=== PATIENT | female | born 2000 | race Caucasian/White ===

== ENCOUNTER 2021-12-12 14:39 | Outpatient (CLI) | payer BC, SELFPAY ==
--- NOTE | ~2021-12-12 | US_ITS ---
EXAMINATION: US OB <=14 wk fetus w TV DATE: 12/12/2021 15:30 INDICATION: Amenorrhea. Establish dating and viability of during first trimester TECHNIQUE: Real-time pelvic ultrasound utilizing both a transvaginal and transabdominal probe was pe rformed. The interpreting radiologist was not present for the study. COMPARISON: None. FINDINGS: The uterus measures 7.3 x 4.5 x 4.8 cm. There is an intrauterine gestational sac. A yolk sac but no pole is identified. The mean sac diameter measures 11 mm, which correlates with an estimated ge stational age of 5 weeks and 5 days. 5 mm anechoic cyst at the cervix. The right ovary measures 3.3 x 1.8 x 2.3 cm. The left ovary measures 3.5 x 2.3 x 2.0 cm. There are a few subcentimeter anechoic follicles in both ovaries. Vascular flow with arterial waveforms identifie d in both ovaries on color Doppler. There is no free fluid in the pelvis. IMPRESSION: 1. Intrauterine gestational sac with single yolk sac but no discernible pole likely due to whitney y stage of . 2. Gestational age by ultrasound based upon mean sac diameter of 5 weeks 5 day(s) +/- 4 day(s) with ultrasound estimated date of delivery (GABI) of 08/09/2022. Reviewed, dictated and finalized at location B. IMPRESSION: 1. Intrauterine gestational sac with single yolk sac but no discernible p ole likely due to early stage of . 2. Gestational age by ultrasound based upon mean sac diameter of 5 weeks 5 day (s) +/- 4 day(s) with ultrasound estimated date of delivery (GABI) of 08/09/2022.
== END 2021-12-12 14:40 | disposition home or self-care (01) ==
LOC: CHSIMG 14:41
PROVIDERS: PCP Nurse Practitioner Family; Visit Provider Student in an Organized Health Care Education/Training Program
DX: N91.2 Amenorrhea, unspecified (principal)
CPT/HCPCS: 76801; 76817

== ENCOUNTER 2021-12-22 07:39 | Outpatient (CLI) | payer BC, SELFPAY ==
--- NOTE | ~2021-12-22 | US_ITS ---
EXAMINATION: US OB <= 14 weeks fetus DATE: 12/22/2021 08:54 INDICATION: First trimester dating and viability assessment TECHNIQUE: Real-time pelvic transabdominal ultrasound was performed. COMPARISON: 12/12/2021 FINDINGS: The uterus measures 7.8 x 5.0 x 5.5 cm. There is an intrauterine gestational sac. The mean sac diameter is 1.4 cm, previously 1.1 cm. A yolk sac is identified. No definite pole is visua lized. The right ovary measures 3.6 x 2.5 x 2.8 cm. The left ovary measures 3.5 x 2.2 x 3.0 cm. There is nor mal vascular flow in the ovaries. There is no free fluid in the pelvis. IMPRESSION: 1. Intrauterine gestational sac without visible pole. Increase in mean sac diameter does not co rrespond with expected interval growth since prior ultrasound exam. Ultrasound findings are suspiciou s for, but not diagnostic of, failure. Recommend followup with serial beta-hCG and ultrasou nd. Reviewed, dictated and finalized at location A. IMPRESSION: 1. Intrauterine gestational sac without visible pole. Increase in mean sa c diameter does not correspond with expected interval growth since prior ultras ound exam. Ultrasound findings are suspicious for, but not diagnostic of, pregn roixe failure. Recommend followup with serial beta-hCG and ultrasound.
== END 2021-12-22 07:40 | disposition home or self-care (01) ==
LOC: CHSIMG 07:41
PROVIDERS: PCP Nurse Practitioner Family; Visit Provider Student in an Organized Health Care Education/Training Program
DX: Z34.90 Encounter for supervision of normal pregnancy, unspecified, unspecified trimester (principal)
CPT/HCPCS: 76801

== ENCOUNTER 2021-12-27 16:48 | Outpatient (CLI) | payer BC, SELFPAY | END 2021-12-27 16:49 | disposition home or self-care (01) | LOC: CHSLAB 16:50 | PROVIDERS: PCP Nurse Practitioner Family; Visit Provider Student in an Organized Health Care Education/Training Program | DX: O20.0 Threatened abortion (principal) | CPT/HCPCS: 36415; 84702 ==

== ENCOUNTER 2021-12-29 07:50 | Outpatient (CLI) | payer BC, SELFPAY ==
--- NOTE | ~2021-12-29 | US_ITS ---
EXAMINATION: US OB <= 14 weeks fetus DATE: 12/29/2021 09:00 INDICATION: First trimester with inconclusive viability and 5 days of vaginal bleedin g. TECHNIQUE: Real-time pelvic ultrasound utilizing both a transvaginal and transabdominal probe was pe rformed. The interpreting radiologist was not present for the study. COMPARISON: 12/22/2021 FINDINGS: The uterus measures 7.9 x 4.1 x 5.4 cm. Endometrial complex measures 9 mm in thickness. No intrauteri ne gestational sac or fluid identified in the current study which given the clear visualization of th e gestational sac on the prior study would be consistent with demise. Again seen is a 6 mm anec hoic nabothian cyst at the cervix. The right ovary measures 3.2 x 2.1 x 2.6 cm. The left ovary measur es 4.3 x 1.8 x 2.3 cm. Vascular flow identified in both ovaries on color Doppler. There is no free fl uid in the pelvis. IMPRESSION: 1. No evident intrauterine gestational sac which given the clear visualization of a second study perf ormed 2 weeks prior to be consistent with demise. Correlate with beta hCG level. Reviewed, dictated and finalized at location A. IMPRESSION: 1. No evident intrauterine gestational sac which given the clear visualization of a second study performed 2 weeks prior to be consistent with demise. C orrelate with beta hCG level.
== END 2021-12-29 07:51 | disposition home or self-care (01) ==
LOC: CHSIMG 07:51
PROVIDERS: PCP Nurse Practitioner Family; Visit Provider Student in an Organized Health Care Education/Training Program
DX: O36.80X0 Pregnancy with inconclusive fetal viability, not applicable or unspecified (principal); O20.0 Threatened abortion
CPT/HCPCS: 36415; 76801; 84702

== ENCOUNTER 2022-02-13 15:35 | Outpatient (CLI) | payer BC, SELFPAY ==
--- NOTE | ~2022-02-13 | XR_ITS ---
EXAM: [id number]_CR DATE: 02/13/2022 15:52 HISTORY: RT sided neck pain x 1 wk NKI . COMPARISON: None available. FINDINGS: Craniocervical association and atlantoaxial joint are normal. No prevertebral soft tissue swelling. Vertebral bodies are aligned. Mild reversal of the cervical lordosis which can occur with p ositioning or spasm. Vertebral body heights and disc spaces are maintained. Normal facets and posteri or elements. IMPRESSION: No acute fracture or traumatic malalignment in the cervical spine. Reviewed, dictated and finalized at location K.
== END 2022-02-13 15:36 | disposition home or self-care (01) ==
LOC: CHSIMG 15:37
PROVIDERS: PCP Nurse Practitioner Family; Visit Provider Nurse Practitioner Family
DX: M54.2 Cervicalgia (principal)
CPT/HCPCS: 72040

== ENCOUNTER → 2022-04-26 11:31 | Outpatient (CLI) | payer BC, SELFPAY ==
--- NOTE | ~2022-04-26 | US_ITS ---
EXAMINATION: US OB transvaginal DATE: 04/26/2022 11:54 INDICATION: First trimester dating TECHNIQUE: Real-time pelvic transabdominal and transvaginal ultrasound was performed. COMPARISON: None. FINDINGS: The uterus measures 6.8 x 4.4 x 5.8 cm. There is an intrauterine gestational sac. A yolk s ac is identified. heart motion is identified measuring 142 beats per minute (bpm) by M-mode Dop pler. The crown rump length measures 9 mm, which correlates with an estimated gestational age o f 6 weeks and 6 day(s) (+/-) 4 day(s). The left ovary is not visualized however no left adnexal abnormality is seen. The right ovary measure s 3.4 x 2.6 x 2.7 cm. There is normal vascular flow in the right ovary. There is no free fluid in the pelvis. IMPRESSION: 1. Live intrauterine with an estimated gestational age of 6 weeks and 6 day(s) (+/-) 4 day( s) and an estimated delivery date of 12/14/2022. Reviewed, dictated and finalized at location F. IMPRESSION: 1. Live intrauterine with an estimated gestational age of 6 weeks and 6 day(s) (+/-) 4 day(s) and an estimated delivery date of 12/14/2022.
== END ==
PROVIDERS: PCP Nurse Practitioner Family; Visit Provider Advanced Practice Midwife
DX: Z36.87 Encounter for antenatal screening for uncertain dates (principal); O26.851 Spotting complicating pregnancy, first trimester; Z3A.01 Less than 8 weeks gestation of pregnancy
CPT/HCPCS: 76817

== ENCOUNTER 2022-05-02 18:02 | Outpatient (CLI) | payer BC, SELFPAY ==
[2022-05-02 18:28] LABS: Basophils Absolute Auto 0.05 K/mm3 (0.00-0.10); Basophils Percent Auto 0.3 % (0.0-1.0); Eosinophils Absolute Auto 0.08 K/mm3 (0.02-0.50); Eosinophils Percent Auto 0.5 % (1.0-6.0); Hematocrit 39.4 % (35.0-49.0); Hemoglobin 13.5 g/dL (12.0-15.0); Immature Granulocyte Absolute 0.07 K/mm3 (0.00-0.00); Immature Granulocyte Percent A 0.5 % (0.0-0.0); Lymphocytes Percent Auto 26.3 % (18.0-42.0); Mean Corpuscular HGB Conc 34.3 g/dL (32.0-36.0); Mean Corpuscular Hemoglobin 28.2 pg (27.0-31.0); Mean Corpuscular Volume 82.4 fL (78.0-102.0); Mean Platelet Volume 9.6 fl (9.2-11.8); Monocytes Absolute Auto 0.71 K/mm3 (0.10-0.90); Monocytes Percent Auto 4.8 % (2.0-11.0); Neutrophils Percent Auto 67.6 % (50.0-70.0); Platelet Count Result 326 K/mm3 (150-420); Red Blood Count 4.78 M/mm3 (4.20-5.40); Red Cell Distribution Width 13.7 % (11.6-14.4); White Blood Count 14.9 K/mm3 (4.8-10.8)
[2022-05-02 19:04] LABS: Ferritin 71 ng/mL (8-252)
[2022-05-02 19:10] LABS: Hemoglobin A1C 5.3 % (<5.7)
[2022-05-02 19:49] LABS: HIV 1 P24 AG Negative (Negative); HIV 1/2 AB Negative (Negative)
[2022-05-06 11:40] LABS: Hepatitis B Surface Antigen Nonreactive (Nonreactive); Hepatitis C Signal to Cutoff 0.01 ratio (<1.00); Hepatitis C Virus Antibody Nonreactive (Nonreactive)
[2022-05-06 12:24] LABS: Rubella IgG Antibody <0.90 Index
[2022-05-06 13:36] LABS: RPR Screen Non-Reactive (Non-Reactive)
[2022-05-08 18:37] LABS: Vitamin D 25 Hydroxy 32 ng/mL (30-100)
== END 2022-05-02 18:03 | disposition home or self-care (01) ==
LOC: CHSLAB 18:04
PROVIDERS: PCP Nurse Practitioner Family; Visit Provider Advanced Practice Midwife
DX: Z36.9 Encounter for antenatal screening, unspecified (principal)
CPT/HCPCS: 36415; 82306; 82728; 83036; 85025; 86592; 86703; 86762; 86850; 86900; 86901

== ENCOUNTER 2022-07-01 10:24 | Outpatient (CLI) | payer BC, SELFPAY ==
[2022-07-06 12:02] LABS: Total Protein Urine Random < 6.0 mg/dL (0.0-11.9)
[2022-07-06 12:04] LABS: Total Protein Urine 24 Hr 123 mg/24hr (0-149); Total Volume 24 Hour Urine 2050 ml
== END 2022-07-01 10:25 | disposition home or self-care (01) ==
LOC: CHSLAB 10:27
PROVIDERS: Obstetrics & Gynecology Gynecology; PCP Nurse Practitioner Family; Visit Provider Advanced Practice Midwife
DX: D13.2 Benign neoplasm of duodenum (principal)
CPT/HCPCS: 81050; 84156

== ENCOUNTER 2022-07-28 10:55 | Outpatient (CLI) | payer BC, SELFPAY ==
--- NOTE | ~2022-07-28 | US_ITS ---
US OB /maternal detail DATE: 07/28/2022 11:55 INDICATION: anatomy screen TECHNIQUE: Real-time imaging and Doppler analysis COMPARISON: None FINDINGS: Live bingham intrauterine gestation, fetus in longitudinal lie, breech presentation. The placenta is anterior fundal, lower margin 10 cm above the internal os. Subjectively normal amount of amniotic fluid. Cerebral ventricles appear borderline size, measuring up to 9.3 and 10.9 mm. The findings suggest bor derline or mild ventriculomegaly. With enlargement of the lateral ventricles of 10 mm or greater, mark rt-term follow-up ultrasound imaging for ventricular assessment and possible progression of tanja tricular dilatation is recommended. In addition, amniocentesis with chromosomal analysis should be co nsidered, in addition to testing for cytomegalovirus and toxoplasmosis. (Review article in [place] J ournal Obstetrics and Gynecology, January 2000 813: In the setting of isolated ventriculomegaly of 10 t o 12 mm, the likelihood of survival with normal neural development is greater than 90%. ) Normal cisterna magna. Normal nuchal fold. Normal cerebellum. lips and nose appear normal . The spine appears intact Normal kidneys without hydronephrosis. The diaphragm is intact. Fluid is demonstrated in the stomach and urinary bladder. Four-chamber heart with Doppler heart rate of 155 beats per minute. Normal appearance of the le ft and right ventricular outflow tracts. Three-vessel umbilical cord with normal insertion at abdominal wall. Four extremities. Biparietal diameter 4.78 cm; 20 weeks 3 days Head circumference 18.03 cm; 20 weeks 3 days Abdominal circumference 14.94 cm; 20 weeks 1 day Femur length 3.48 cm; 21 weeks 0 days Composite age by Hadlock formula is 20 weeks 4 days +/- 1 week 3 days, with GABI of 12/11/2022 compared to 12/14/2022 by LMP. Estimated weight is 360.3 +/- 54 g. Estimated weight-GP: 68.1% Head circumference/abdominal circumference 1.21, within normal range of 1.07-1.25 Femur length/head circumference 19.29, within normal range of 16.29-20.09 IMPRESSION: Borderline cerebral ventricular size; short-term follow-up ultrasound imaging is recommen ded. Consider amniocentesis with chromosomal analysis and possible testing for cytomegalovirus and to xoplasmosis. Composite age by Hadlock formula is 20 weeks 4 days +/- 1 week 3 days with GABI of 12/11/2022 Reviewed, dictated and finalized at Location A. Reviewed, dictated and finalized at location B. INTERNSHIP IMPRESSION: Borderline cerebral ventricular size; short-term follow-up ultrasou nd imaging is recommended. Consider amniocentesis with chromosomal analysis and possible testing for cytomegalovirus and toxoplasmosis. Composite age by Hadlock formula is 20 weeks 4 days +/- 1 week 3 days with GABI of 12/11/2022
== END 2022-07-28 10:56 ==
PROVIDERS: PCP Advanced Practice Midwife; Visit Provider Advanced Practice Midwife
DX: Z36.9 Encounter for antenatal screening, unspecified (principal); Z3A.20 20 weeks gestation of pregnancy
CPT/HCPCS: 76805

== ENCOUNTER 2022-08-01 17:56 | Outpatient (CLI) | payer BC, SELFPAY ==
[2022-08-06 09:55] LABS: CMV IgG Antibody <0.60 U/mL (<0.60); CMV IgM Antibody <30.00 AU/mL (<30.00)
[2022-08-07 08:01] LABS: Toxoplasma IgG Antibody <7.20 IU/mL (<7.20)
[2022-08-07 08:50] LABS: Toxoplasma IgM Antibody <8.00 AU/mL (<8.00)
== END 2022-08-01 17:57 | disposition home or self-care (01) ==
LOC: CHSLAB 18:01
PROVIDERS: PCP Advanced Practice Midwife; Visit Provider Obstetrics & Gynecology Gynecology
DX: O28.3 Abnormal ultrasonic finding on antenatal screening of mother (principal); Z3A.00 Weeks of gestation of pregnancy not specified
CPT/HCPCS: 36415; 86644; 86645; 86777

== ENCOUNTER 2022-09-19 08:15 | Outpatient (CLI) | payer OTHER, SELFPAY ==
[2022-09-19 09:42] LABS: Hematocrit 36.2 % (35.0-49.0); Hemoglobin 12.1 g/dL (12.0-15.0)
[2022-09-19 10:11] LABS: Glucose 1 Hour PP 50gm Dose 133 mg/dL (70-130)
[2022-09-19 10:22] LABS: HIV 1 P24 AG Negative (Negative); HIV 1/2 AB Negative (Negative)
[2022-09-23 06:22] LABS: Vitamin D 25 Hydroxy 59 ng/mL (30-100)
== END 2022-09-19 08:16 | disposition home or self-care (01) ==
LOC: CHSLAB 08:19
PROVIDERS: PCP Nurse Practitioner Family; Visit Provider Advanced Practice Midwife
DX: Z36.9 Encounter for antenatal screening, unspecified (principal)
CPT/HCPCS: 36415; 82306; 82947; 85014; 85018; 86703

== ENCOUNTER 2022-09-25 08:40 | Outpatient (CLI) | payer OTHER, SELFPAY ==
[2022-09-25 09:31] LABS: Glucose Fasting Gestational 91 mg/dL (>/=95)
[2022-09-25 10:30] LABS: Glucose 1 Hour Gest 173 mg/dL (70-130)
[2022-09-25 11:14] LABS: Glucose 2 Hour Gest 157 mg/dL (<155)
[2022-09-25 12:18] LABS: Glucose 3 Hour Gest 96 mg/dL (>/=140)
== END 2022-09-25 08:41 | disposition home or self-care (01) ==
LOC: CHSLAB 08:43
PROVIDERS: PCP Nurse Practitioner Family; Visit Provider Obstetrics & Gynecology Gynecology
DX: O99.810 Abnormal glucose complicating pregnancy (principal); Z3A.00 Weeks of gestation of pregnancy not specified
CPT/HCPCS: 36415; 82951; 82952

== ENCOUNTER → 2022-10-27 08:08 | Outpatient (CLI) | payer OTHER, SELFPAY ==
--- NOTE | ~2022-10-27 | US_ITS ---
EXAMINATION: US OB follow up DATE: 10/27/2022 08:45 INDICATION: Estimated size greater than expected for estimated gestational age age TECHNIQUE: Real-time ultrasound of the pelvis was performed. The interpreting radiologist was not pre sent for the study. COMPARISON: None. FINDINGS: There is a single living fetus in vertex presentation. The placenta is anterior. heart rate is 141 beats per minute (bpm). The amniotic fluid index is 25.2 cm, which is slightly above the upper limits of normal (5th%-95%: 8.3-24.5 cm at 33 weeks estimated gestational age, 97th% is 27.4 cm). The amniotic fluid volume however appears subjectively normal and the remaining imaging. The following biometric data were obtained: BPD: 8.2 cm -> 32 weeks 6 days Head circumference: 30.2 cm -> 33 weeks 4 days Abdominal circumference: 29.2 cm -> 33 weeks 1 days Femur length: 6.0 cm -> 31 weeks 2 days These measurements are concordant. Head circumference to abdominal circumference ratio: 1.04 (normal range 0.96-1.12). Estimated weight: 2013 g (+/-) 302 g or 4 lbs. 7 oz. (+/-) 11 oz. IMPRESSION: 1. Single living fetus in vertex presentation with heart rate of 141 bpm. 2. Amniotic fluid index of 25.2 cm which is between 95th and 97th percentile for estimated gestationa l age of 33 weeks. 3. Estimated weight is 26th percentile by Hadlock criteria when 12/22/2022 is used as the estima sylvia date of delivery (GABI). Please correlate with clinical information or earlier ultrasounds for mos t accurate GABI. Reviewed, dictated and finalized at location A. IMPRESSION: 1. Single living fetus in vertex presentation with heart rate of 141 bpm. 2. Amniotic fluid index of 25.2 cm which is between 95th and 97th percentile fo r estimated gestational age of 33 weeks. 3. Estimated weight is 26th percentile by Hadlock criteria when 12/22/2022 is used as the estimated date of delivery (GABI). Please correlate with clinica l information or earlier ultrasounds for most accurate GABI.
== END ==
PROVIDERS: PCP Advanced Practice Midwife; Visit Provider Advanced Practice Midwife
DX: O36.63X0 Maternal care for excessive fetal growth, third trimester, not applicable or unspecified (principal); Z3A.33 33 weeks gestation of pregnancy
CPT/HCPCS: 76816

== ENCOUNTER 2022-11-12 17:57 | Outpatient (CLI) | payer OTHER, SELFPAY ==
[2022-11-12 18:14] LABS: Hematocrit 36.5 % (35.0-49.0); Hemoglobin 11.8 g/dL (12.0-15.0); Mean Corpuscular HGB Conc 32.3 g/dL (32.0-36.0); Mean Corpuscular Hemoglobin 25.8 pg (27.0-31.0); Mean Corpuscular Volume 79.7 fL (78.0-102.0); Mean Platelet Volume 10.3 fl (9.2-11.8); Platelet Count Result 221 K/mm3 (150-420); Red Blood Count 4.58 M/mm3 (4.20-5.40); Red Cell Distribution Width 14.4 % (11.6-14.4); White Blood Count 11.1 K/mm3 (4.8-10.8)
[2022-11-12 18:41] LABS: Alanine Aminotransferase 18 U/L (14-59); Albumin Level 2.8 g/dL (3.4-5.0); Alkaline Phosphatase 138 U/L (46-116); Anion Gap 11 mmol/L (8-16); Aspartate Amino Transferase 21 U/L (15-37); Bilirubin,Total 0.2 mg/dL (0.00-1.00); Blood Urea Nitrogen 11 mg/dL (7-18); Carbon Dioxide 23 mmol/L (21-32); Chloride 106 mmol/L (98-108); Estimated Glomerular Filt Rate > 60; Glucose 86 mg/dL (70-99); Osmolality Calculated 288 mOsm/kg (285-295); Potassium 3.6 mmol/L (3.5-5.1); Sodium 140 mmol/L (136-145); Total Protein 6.7 g/dL (6.4-8.2); Uric Acid 5.3 mg/dL (2.6-6.0)
== END 2022-11-12 17:58 | disposition home or self-care (01) ==
LOC: CHSLAB 18:00
PROVIDERS: PCP Nurse Practitioner Family; Visit Provider Advanced Practice Midwife
DX: O99.891 Other specified diseases and conditions complicating pregnancy (principal)
CPT/HCPCS: 36415; 80053; 84550; 85027

== ENCOUNTER 2022-11-14 07:06 | Outpatient (CLI) | payer OTHER, SELFPAY ==
[2022-11-14 07:30] LABS: Total Protein Urine Random < 6.0 mg/dL (0.0-11.9)
[2022-11-14 07:32] LABS: Total Protein Urine 24 Hr 156 mg/24hr (0-149); Total Volume 24 Hour Urine 2600 ml
== END 2022-11-14 07:07 | disposition home or self-care (01) ==
LOC: CHSLAB 07:08
PROVIDERS: PCP Nurse Practitioner Family; Visit Provider Advanced Practice Midwife
DX: O99.891 Other specified diseases and conditions complicating pregnancy (principal)
CPT/HCPCS: 81050; 84156

== ENCOUNTER → 2022-11-22 08:11 | Outpatient (CLI) | payer OTHER, SELFPAY ==
--- NOTE | ~2022-11-22 | US_ITS ---
EXAMINATION: US OB follow up DATE: 11/22/2022 08:40 INDICATION: Size greater than dates. TECHNIQUE: Real-time transabdominal obstetric ultrasound. FINDINGS: Comparison to multiple prior studies sequentially, with oldest reviewed study dated 2021. There is a single living fetus in vertex presentation. The placenta is anterior without placenta pre via. cardiac activity and movement is noted with a heart rate of 139 beats per minute. T he amniotic fluid volume is normal. IFTIKHAR measures 18.3 cm (normal range is 7.7-24.9 cm). The following biometric data were obtained: BPD: 89mm corresponds to gestational age 36 weeks 1 days. Head circumference: 331mm corresponds to gestational age 37 weeks 5 days. Abdominal circumference: 344mm corresponds to gestational age 38 weeks 2 days. Femur length: 69mm corresponds to gestational age 35 weeks 3 days. Estimated weight: 3167grams +/- 475grams 67.2%.] IMPRESSION: 1. Single living intrauterine in vertex presentation with an estimated gestational age of 36 weeks 6 days by inititial ultrasound. Appropriate interval growth. 2. Normal placenta. Reviewed, dictated and finalized at location L. IMPRESSION: 1. Single living intrauterine in vertex presentation with an estimat ed gestational age of 36 weeks 6 days by inititial ultrasound. Appropriate int erval growth. 2. Normal placenta.
== END ==
PROVIDERS: PCP Advanced Practice Midwife; Visit Provider Advanced Practice Midwife
DX: O36.63X0 Maternal care for excessive fetal growth, third trimester, not applicable or unspecified (principal); Z3A.36 36 weeks gestation of pregnancy
CPT/HCPCS: 76816

== ENCOUNTER 2022-11-27 09:02 | Outpatient (CLI) | payer OTHER, SELFPAY ==
[2022-11-27] VITALS (7 sets, daily range): BP systolic 115–143; BP diastolic 76–117; PULSE 60–123
[2022-11-27 09:47] LABS: Basophils Percent Auto 0.4 % (0.2-1.2); Eosinophils Percent Auto 0.4 % (0-4.4); Hematocrit 36.4 % (37.0-47.0); Hemoglobin 11.7 g/dL (12.0-15.0); Immature Granulocyte Absolute 0.04 K/mm3 (0.00-0.031); Immature Granulocyte Percent A 0.5 % (0-0.5); Lymphocytes Absolute Auto 1.69 K/mm3 (0.9-3.2); Lymphocytes Percent Auto 20.5 % (18.3-44.2); Mean Corpuscular HGB Conc 32.1 g/dl (32-36); Mean Corpuscular Hemoglobin 25.5 pg (26-34); Mean Corpuscular Volume 79.5 fl (80-100); Mean Platelet Volume 10.5 fl (7.4-10.4); Monocytes Absolute Auto 0.5 K/mm3 (0.1-0.6); Monocytes Percent Auto 6.4 % (2.6-8.5); Neutrophils Absolute Auto 5.9 K/mm3 (1.3-6.7); Neutrophils Percent Auto 71.8 % (45.5-73.1); Platelet Count Result 219 k/mm3 (150-375); Red Blood Count 4.58 M/mm3 (4.2-5.4); Red Cell Distribution Width 15.3 % (11.5-14.5); White Blood Count 8.3 K/mm3 (4.5-10.0)
[2022-11-27 09:53] LABS: Creatinine Urine 22.9 mg/dL; Total Protein Urine Random 13 mg/dL; Ur Ttl Prot Creatinine Ratio 0.57 mg/mg (0-0.20)
[2022-11-27 09:57] LABS: Alanine Aminotransferase 18 U/L (6-35); Albumin Level 3.5 g/dL (3.5-5.1); Alkaline Phosphatase 150 U/L (38-126); Anion Gap 8 mmol/L (8-16); Aspartate Amino Transferase 23 U/L (14-36); Bilirubin,Total 0.3 mg/dL (0.2-1.3); Blood Urea Nitrogen 8 mg/dL (7-17); Calcium 8.7 mg/dL (8.4-10.2); Carbon Dioxide 22 mmol/L (22-30); Chloride 106 mmol/L (98-107); Estimated Glomerular Filt Rate > 60; Glucose 89 mg/dL (65-110); Potassium 3.7 mmol/L (3.4-5.0); Sodium 136 mmol/L (137-145); Uric Acid 6.4 mg/dL (2.5-7.5)
[2022-11-27 10:08] LABS: Appearance Urine Cloudy (Clear); Bacteria Urine 2+ /hpf; Bilirubin Urine Negative (Negative); Blood Urine Negative (Negative); Color Urine Yellow (Yellow); Glucose Urine UA Negative (Negative); Ketones Urine Negative (Negative); Leukocyte Esterase Ur 3+ LEU/UL (NEGATIVE); Need Manual Microscopic Reviewed; Nitrate Urine Negative (Negative); Non Pathogenic Casts 0-2; Protein Urine Negative (Negative); RBC Urine 0-2 /hpf (0-2); Specific Grav Ur 1.003 (1.001-1.035); Squamous Epithelial Cell Urine Many /hpf (Few); Urobilinogen Urine 0.2 mg/dL (<2.0); WBC Urine 21-50 /hpf (0-3)
[2022-11-27 10:15] LABS: Add Urine Microscopic? YES
== END 2022-11-27 10:45 | disposition home or self-care (01) ==
LOC: ANHOBOP 09:08 → ANHOBPP 09:09
PROVIDERS: PCP Advanced Practice Midwife; Visit Provider Obstetrics & Gynecology Gynecology
DX: O13.9 Gestational [pregnancy-induced] hypertension without significant proteinuria, unspecified trimester (principal); Z3A.00 Weeks of gestation of pregnancy not specified
CPT/HCPCS: 36415; 59025; 80053; 81001; 82570; 84156; 84550; 85025; 87086; 87088; 99199

== ENCOUNTER 2022-12-03 09:33 | Inpatient (IN) | payer OTHER, SELFPAY ==
[2022-12-03] VITALS (171 sets, daily range): BP systolic 109–143; BP diastolic 44–105; PULSE 65–205; TEMP 36.9–37.3; O2SAT 96–100; BMI 43.7
--- NOTE | 2022-12-03 10:02 | PM.OBPNLAB ---
Pain Control Date/time seen: 12/03/22 10:02 Comments: CNM to bedside for US Assessment and Plan Comments: Fetus vertex by limited bedside US.
[2022-12-03 11:06] LABS: Basophils Percent Auto 0.3 % (0.2-1.2); Eosinophils Percent Auto 0.1 % (0-4.4); Hematocrit 34.9 % (37.0-47.0); Hemoglobin 11.3 g/dL (12.0-15.0); Immature Granulocyte Absolute 0.05 K/mm3 (0.00-0.031); Immature Granulocyte Percent A 0.5 % (0-0.5); Lymphocytes Absolute Auto 1.69 K/mm3 (0.9-3.2); Lymphocytes Percent Auto 17.1 % (18.3-44.2); Mean Corpuscular HGB Conc 32.4 g/dl (32-36); Mean Corpuscular Hemoglobin 25.2 pg (26-34); Mean Corpuscular Volume 77.7 fl (80-100); Mean Platelet Volume 10.9 fl (7.4-10.4); Monocytes Absolute Auto 0.5 K/mm3 (0.1-0.6); Monocytes Percent Auto 5.2 % (2.6-8.5); Neutrophils Absolute Auto 7.6 K/mm3 (1.3-6.7); Neutrophils Percent Auto 76.8 % (45.5-73.1); Platelet Count Result 222 k/mm3 (150-375); Red Blood Count 4.49 M/mm3 (4.2-5.4); Red Cell Distribution Width 15.7 % (11.5-14.5); White Blood Count 9.9 K/mm3 (4.5-10.0)
[2022-12-03 11:26] LABS: Alanine Aminotransferase 19 U/L (6-35); Albumin Level 3.5 g/dL (3.5-5.1); Alkaline Phosphatase 154 U/L (38-126); Anion Gap 7 mmol/L (8-16); Aspartate Amino Transferase 35 U/L (14-36); Bilirubin,Total 0.4 mg/dL (0.2-1.3); Blood Urea Nitrogen 8 mg/dL (7-17); Calcium 8.3 mg/dL (8.4-10.2); Carbon Dioxide 21 mmol/L (22-30); Chloride 108 mmol/L (98-107); Estimated Glomerular Filt Rate > 60; Glucose 90 mg/dL (65-110); Potassium 3.9 mmol/L (3.4-5.0); Sodium 136 mmol/L (137-145); Uric Acid 6.8 mg/dL (2.5-7.5)
[2022-12-03 12:10] LABS: Collection Time Urine 24 HOURS
--- NOTE | 2022-12-03 12:17 | LDADM ---
This patient, Jeni Parry, was admitted to Labor/Delivery/Recovery 106 on 12/03/22 at 09:33. Plans for labor, pain management and were discussed with patient. Patient/family oriented to hospital policies and general routines including ID bracelet, bed and alarms, visiting hours, pain management, procedures, bathroom and other care routines, personal items, smoking policy, room service/diet and guest tray routines, security routines, and visiting hours. Patient/Family are encouraged to report perceived risks to care and to ask questions if they do not understand what they are told or what they should do. See OBIX for further documentation.
[2022-12-03 12:40] LABS: Creatinine Urine 39.6 mg/dL; Total Protein Urine Random 12 mg/dL
[2022-12-03 12:51] LABS: Patient Weight 230 Lbs
[2022-12-03 12:55] LABS: Creatinine Clearance Urine 103.2 ml/min (75-125); Serum Creat 0.6; Specific Gravity Ur 1.015; Total Protein Urine 24 Hr 312 mg/24hr (28-141); Total Volume 24 Hour Urine 2600 ml
[2022-12-03] MEDS: miSOPROStol 25 MCG TABLET BY MOUTH ×3 (12:56→21:17)
[2022-12-03 15:08] LABS: Glucose Point of Care 89 mg/dl (65-105)
--- NOTE | 2022-12-03 16:59 | WPDANESEPPF ---
Anes - Initial Pre Proc Eval Procedure: Labor epidural Date/Time: 12/03/22 16:59 Surgeon: Rosanna Elizabeth MD Pre Op Diagnosis: Abdominal pain with contractions Pre Op Diagnosis: IOL Patient Data Age: 22 Gender: F Height: 1.55 m Weight: 105 kg Last Vital Signs Pulse 117 H 12/03/22 16:00 BP 118/61 12/03/22 16:00 Pulse Ox 99 12/03/22 16:54 O2 Del Method Room Air 12/03/22 12:17 Allergies Allergy/AdvReac Type Severity Reaction Status Date / Time No Known Allergies Allergy Verified 11/27/22 09:45 Home Medications Medication Instructions Recorded Confirmed Type docosahexaenoic acid 200 mg 200 mg PO 12/06/21 History capsule ( DHA) Laboratory Tests 12/03/22 12/03/22 12/03/22 10:45 10:54 15:06 WBC 9.9 K/mm3 (4.5-10.0) RBC 4.49 M/mm3 (4.2-5.4) Hgb 11.3 L g/dL (12.0-15.0) Hct 34.9 L % (37.0-47.0) MCV 77.7 L fl (80-100) MCH 25.2 L pg (26-34) MCHC 32.4 g/dl (32-36) RDW 15.7 H % (11.5-14.5) Plt Count 222 k/mm3 (150-375) MPV 10.9 H fl (7.4-10.4) Immature Gran % (Auto) 0.5 % (0-0.5) Neut % (Auto) 76.8 H % (45.5-73.1) Lymph % (Auto) 17.1 L % (18.3-44.2) Wolfe % (Auto) 5.2 % (2.6-8.5) Eos % (Auto) 0.1 % (0-4.4) Baso % (Auto) 0.3 % (0.2-1.2) Lymph # (Auto) 1.69 K/mm3 (0.9-3.2) Wolfe # (Auto) 0.5 K/mm3 (0.1-0.6) Eos # (Auto) 0.0 K/mm3 (0-0.3) Baso # (Auto) 0.0 K/mm3 (0.0-0.1) Abs Immat Gran (auto) 0.05 H K/mm3 (0.00-0.031) Absolute Neuts (auto) 7.6 H K/mm3 (1.3-6.7) Absolute Nucleated RBC 0.0 K/mm3 (0.0-0.012) Nucleated RBC % 0.0 % (0.0-0.2) Sodium 136 L mmol/L (137-145) Potassium 3.9 mmol/L (3.4-5.0) Chloride 108 H mmol/L (98-107) Carbon Dioxide 21 L mmol/L (22-30) Anion Gap 7 L mmol/L (8-16) BUN 8 mg/dL (7-17) Creatinine 0.60 L mg/dL (0.7-1.0) Estim Creat Clear Calc Not Reportable Estimated GFR > 60 (59 - ) Glucose 90 mg/dL (65-110) POC Capillary Glucose 89 mg/dl (65-105) Uric Acid 6.8 mg/dL (2.5-7.5) Calcium 8.3 L mg/dL (8.4-10.2) Total Bilirubin 0.4 mg/dL (0.2-1.3) AST 35 U/L (14-36) ALT 19 U/L (6-35) Alkaline Phosphatase 154 H U/L (38-126) Total Protein 7.0 g/dL (6.3-8.2) Albumin 3.5 g/dL (3.5-5.1) U Random Total Protein 12 mg/dL Ur 24 Hour Volume 2600 ml Urine Creatinine 39.6 mg/dL Creatinine Clearance 103.2 ml/min (75-125) Ur Total Protein 24 Hr 312 H mg/24hr (28-141) RPR Pending Blood Type A Positive Antibody Screen Negative : gestational age HCG: positive Patient hx anesthesia problems: none Family hx anesthesia problems: none Results Review: All pre-operative results and documents have been reviewed as part of the pre-operative evaluation. [facility] Past Medical History Medical History History of anxiety Morbid obesity Family History Family History Father Anxiety Social History Social History Smoking status: Never smoker Alcohol intake: never Substance use: never Lack of Transportation: No Lack of Food: Never True Current Housing: I Have Housing Concerned About Future Housing: No Difficulty Paying Gas/Electric Bills: No Difficulty Paying for Meds: No Currently Unemployed: No Education: Trade/Vocational Certificate Difficulty w/ Childcare or Family Care: No
--- NOTE | 2022-12-03 17:40 | WPDOBADMIT ---
Obstetrics - Admit Note Admission Note: record reviewed. No pertinent additions to the history and/or any subsequent changes in the physical findings that are not consistent with the expected course of the were found. Additions to the history and/or subsequent changes in the physical findings follow. gHTN
--- NOTE | 2022-12-03 17:42 | PM.OBPNLAB ---
Pain Control Date/time seen: 12/03/22 17:30 Pain control: tolerating well Contractions Monitor mode: External Contraction pattern: Irregular Contraction intensity: Mild Status status: Category l Assessment and Plan Assessment: induction ongoing Plan: continuous present management Comments: Discussed plan of care and options for induction. Offered helton balloon and discussed risks/benefits, pt declines. Plan 3rd dose of misoprostol unless having regular, painful contractions and then pitocin. Discussed option of amniotomy in the am including risks/benefits and she agrees. Discussed common course of IOL. Anticipate vaginal . Dr. Elizabeth updated.
[2022-12-03 19:08] LABS: Glucose Point of Care 97 mg/dl (65-105)
[2022-12-03 23:10] LABS: Glucose Point of Care 80 mg/dl (65-105)
[2022-12-04] VITALS (394 sets, daily range): BP systolic 76–170; BP diastolic 39–142; PULSE 51–247; TEMP 36.5–37.2; O2SAT 75–100
[2022-12-04] MEDS: OXYTOCIN 30 UNITS/NS 500 ML 30 UNITS/500 ML BAG IV CONT (04:26)
[2022-12-04] MEDS: LACTATED RINGERS 1,000 ML 125 ML IV CONT ×2 (04:27→10:24)
[2022-12-04 04:56] LABS: Glucose Point of Care 84 mg/dl (65-105)
--- NOTE | 2022-12-04 07:27 | PM.OBPNLAB ---
Pain Control Date/time seen: 12/04/22 07:27 Pain control: tolerating well Comments: Feeling occasional cramping Pelvic Exam Dilation (cm): 2 Effacement (%): 60 station: -3 Amniotic membrane status: Intact Comments: Cervix very soft. head well applied. Contractions Monitor mode: External Contraction pattern: Irregular Contraction intensity: Mild Status status: Category l Assessment and Plan Pitocin rate (mU/min): 6 Assessment: induction ongoing Comments: CNM to bedside. Discussed plan of care an option for amniotomy and IUPC placemtn. Discussed risks, benefits, and expectations of breaking water and IUPC. Patient is agreeable. Amniotomy performed and there was a large return of clear amniotic fluid.IUPC inserted easily and returned with clear amniotic fluid. Patient tolerated procedure well. Plan to up titrate pitocin as needed to achieve adequate contraction pattern. Anticipate vaginal . Dr. Elizabeth updated.
[2022-12-04 08:34] LABS: Glucose Point of Care 76 mg/dl (65-105)
[2022-12-04 09:23] LABS: Rapid Plasma Reagin Non-Reactive (NonReactive)
[2022-12-04 12:44] LABS: Glucose Point of Care 78 mg/dl (65-105)
[2022-12-04 16:46] LABS: Glucose Point of Care 66 mg/dl (65-105)
[2022-12-04 18:16] LABS: Glucose Point of Care 78 mg/dl (65-105)
[2022-12-04 21:43] LABS: Glucose Point of Care 83 mg/dl (65-105)
[2022-12-05] VITALS (36 sets, daily range): BP systolic 64–159; BP diastolic 41–127; PULSE 25–196; RESP 16–20; TEMP 36.6–37.1; O2SAT 74–100
--- NOTE | 2022-12-05 00:58 | PM.OBPRVD ---
OB - Delivery Note Procedure Delivery date: 12/05/22 Procedure: Events: Gestational Diabetes (A1) and Preeclampsia w/o severe features Induction method: AROM and Per Pitocin Protocol Delivery monitor: External FHT and Internal Uterine Route of delivery: Laceration Description: Perineal - 2nd Degree Delivery repair: vicryl (3-0) Specimen: Yes (placenta) Quantitative Blood Loss (ml): 225 Anesthesia type: Epidural Disposition: Floor Baby Date of : 12/05/22 Weeks of gestation at delivery: 38 (38 5/7) gender: Male Weight (pounds): 6 Weight (ounces): 12 presentation: vertex position: Right Occiput Anterior Placenta delivery description: Spontaneous Cord Vessel Description: 3 Vessels score one minute: 8 score five minutes: 9
--- NOTE | 2022-12-05 01:00 | PM.OBDSVD ---
DS: Admitting Diagnosis Discharge Date 12/07/22 Admitting Diagnosis IUP 38 3/7 wks GDMA1 Preeclampsia DS: Discharge Diagnosis Discharge Diagnosis (1) (normal spontaneous vaginal delivery): Code(s): O80 - Encounter for full-term uncomplicated delivery Status: Acute (2) Preeclampsia: Code(s): O14.90 - Unspecified pre-eclampsia, unspecified trimester Status: Acute (3) GDM, class A1: Code(s): O24.410 - Gestational diabetes mellitus in , diet controlled Status: Acute OB - DS: Summary OB Procedures : NST, PIH Mgmt and Ultrasound OB Procedures Intrapartum: Spontaneous Vag Delivery OB Procedures: : None Peripartum Data Delivery Method: Natural Vaginal Laceration Description: Perineal - 2nd Degree complications: none Status at Discharge Functional status at discharge: independent ambulation Overall status at discharge: patient is progressing back to baseline Time Spent with Patient Time attestation: Total time spent providing and/or coordinating discharge services: DS: Data Data Completed and Pending Labs on day of discharge: Labs from last 24 hours 12/04/22 12/04/22 12/04/22 21:40 17:24 16:42 POC Capillary Glucose 83 78 66 RPR 12/04/22 12/04/22 12/04/22 12:35 08:32 04:52 POC Capillary Glucose 78 76 84 RPR 12/03/22 10:54 POC Capillary Glucose RPR Non-reactive Discharge Plan Discharge Attending physician on discharge: Rosanna Elizabeth Consulting providers: Kaity Kong Discharging Clinician: Rosanna Elizabeth Anticipated Discharge Date/Time: 12/07/22 01:02 Patient Disposition: Home, Self-Care Activity: no shower and pelvic rest Diet: regular Patient Instructions: Antibiotic Form Stand Alone Forms: General Discharge Information Follow-up/Referrals: Rosanna Elizabeth MD [Physician] - 1 Week (and 6 wk) Discharge Medications: New norethindrone (contraceptive) 0.35 mg tablet 0.35 mg PO DAILY Qty: 84 3RF Continued DHA 200 mg capsule 200 mg PO Date of admission: 12/03/22 09:33 Primary Care Provider: KrissyLakia Admitting Provider: oRsanna Elizabeth Attending physician on admission: Rosanna Elizabeth Condition: Stable
[2022-12-05] MEDS: OXYTOCIN 30 UNITS/NS 500 ML 30 UNITS/500 ML BAG 125 UNITS IV CONT (01:05)
[2022-12-05] MEDS: IBUPROFEN 600 MG TABLET PO ×2 (03:27→11:58)
[2022-12-05] MEDS: BENZOCAINE 20% AER SPR (*SP) 56 GM CAN 1 SPRAY TOPICAL (03:28)
[2022-12-05] MEDS: WITCH HAZEL 40 PADS 1 PAD TOPICAL (03:28)
--- NOTE | 2022-12-05 04:03 | PC.NURSE ---
Patient transferred to post room #280 per wheelchair from labor and delivery. Support person present. Oriented to unit, room, information board, rooming in, admission packet and security measures. Patient verbalizes understanding.
--- NOTE | 2022-12-05 07:29 | P.PNOB_ITS ---
OB - PN: Subj Subjective Date/time seen: 12/05/22 07:29 Interval history: PPD 0 from Patient comments: no complaints and pain well controlled baby status: doing well [place] feeding status: breast and bottle feeding Narrative: Attempting to latch baby but having some difficulty. OB - PN: Obj Data Labs 12/03/22 10:54 12/03/22 10:54 Labs: Laboratory Results - last 24 hr 12/03/22 12/04/22 12/04/22 10:54 08:32 12:35 POC Capillary Glucose 76 78 RPR Non-reactive 12/04/22 12/04/22 12/04/22 16:42 17:24 21:40 POC Capillary Glucose 66 78 83 RPR OB - PN A/P Plan day: 0 Plan: routine care Time Spent With Patient Time: Total time spent is greater than 50% in coordination of care (as documented) at patient's floor/unit and/or counseling patient: Review of Systems Review of Systems: All systems reviewed & are unremarkable except as noted in HPI and below Exam Narrative: Alert and oriented. Mood is pleasant and cooperative. Urinating without dif ficulty. Denies passing any large clots. Perineum with minimal edema. Fundus firm and below umbilicus. Const: General: cooperative, healthy appearing, no acute distress and alert Orientation/consciousness: patient oriented x3 Limitations: no limitations Resp: Effort & Inspection: normal respiratory effort Auscultation: clear to auscultation bilaterally Cardio: Rate: regular rate GI: Inspection: normal to inspection Neuro: General: patient oriented x3 Extrem: General: normal to inspection Psych: Appearance: grossly normal Mental Status: mental status grossly normal Affect: normal affect Thought process: Normal thought process present
[2022-12-05] MEDS: MULTIVIT/MIN/PREN/FOL AC/IRON TABLET 1 TAB PO (08:39)
[2022-12-05] MEDS: DOCUSATE SODIUM 100 MG CAPSULE PO ×2 (08:39→17:44)
[2022-12-06 00:42] VITALS: BP 116/78; PULSE 79; RESP 18; TEMP 36.8; O2SAT 100
[2022-12-06] MEDS: IBUPROFEN 600 MG TABLET PO ×3 (01:10→17:34)
[2022-12-06 03:29] LABS: Hematocrit 29.8 % (37.0-47.0); Hemoglobin 9.8 g/dL (12.0-15.0)
[2022-12-06 03:31] VITALS: BP 134/79; PULSE 82
[2022-12-06] MEDS: MULTIVIT/MIN/PREN/FOL AC/IRON TABLET 1 TAB PO (07:37)
[2022-12-06] MEDS: DOCUSATE SODIUM 100 MG CAPSULE PO ×2 (07:37→17:31)
[2022-12-06] MEDS: POLYSACCHARIDE IRON COMPLEX 150 MG CAPSULE PO ×2 (07:37→17:31)
--- NOTE | 2022-12-06 07:49 | P.PNOB_ITS ---
OB - PN: Subj Subjective Date/time seen: 12/06/22 07:49 Interval history: PPD 0 from Patient comments: no complaints and pain well controlled [place] baby status: doing well OB - PN: Obj Data Labs 12/06/22 03:22 12/03/22 10:54 Labs: Laboratory Results - last 24 hr 12/06/22 03:22 Hgb 9.8 L Hct 29.8 L OB - PN A/P Assessment and Plan (1) Preeclampsia: Code(s): O14.90 - Unspecified pre-eclampsia, unspecified trimester Status: Acute Assessment and Plan: vss continue observation Plan day: 1 Plan: routine care Time Spent With Patient Time: Total time spent is greater than 50% in coordination of care (as documented) at patient's floor/unit and/or counseling patient: Exam : Bimanual exam- vagina & uterus: other (Uterus firm, nt @U)
[2022-12-06 07:55] VITALS: BP 131/90; PULSE 79; RESP 16; TEMP 37.3; O2SAT 100
--- NOTE | 2022-12-06 11:06 | WPDANLDPN2 ---
Anes-Prog Note L&D Date/Time: 12/06/22 11:06 Neuro status: Neuro function grossly intact. Vital Signs: Last Vital Signs Temp 37.3 C 12/06/22 07:55 Pulse 79 12/06/22 07:55 Resp 16 12/06/22 07:55 BP 131/90 12/06/22 07:55 Pulse Ox 100 12/06/22 07:55 O2 Del Method Room Air 12/06/22 07:35 Pain score (VAS): 0 I/O: Intake & Output 12/05/22 12/06/22 12/06/22 23:59 07:59 15:59 Intake Total 1680 1000 Output Total 1500 2100 Balance 180 -1100 Patient feedback: Patient satisfied with anesthetic care.
[2022-12-06 13:06] VITALS: BP 135/82; PULSE 81; RESP 16; TEMP 37.1; O2SAT 100
[2022-12-06 15:45] VITALS: BP 131/84; PULSE 85
[2022-12-06 19:20] VITALS: BP 123/81; PULSE 103; RESP 18; TEMP 37; O2SAT 100
[2022-12-07 00:15] VITALS: BP 117/72
--- NOTE | 2022-12-07 04:56 | PM.OBPNVD ---
OB - PN: Subj Subjective Date/time seen: 12/07/22 04:56 Patient comments: no complaints and pain well controlled baby status: doing well OB - PN: Obj Data Labs 12/06/22 03:22 12/03/22 10:54 OB - PN A/P Assessment and Plan (1) Preeclampsia: Code(s): O14.90 - Unspecified pre-eclampsia, unspecified trimester Status: Acute Assessment and Plan: VSS no symptoms good diuresis Plan day: 1 Plan: routine care, discharge home, follow up 6 weeks and other (plans micronor for ) Time Spent With Patient Time: Total time spent is greater than 50% in coordination of care (as documented) at patient's floor/unit and/or counseling patient: Exam : Bimanual exam- vagina & uterus: other (Uterus firm, nt @U)
[2022-12-07 05:40] VITALS: BP 126/76
[2022-12-07 08:35] VITALS: BP 133/87; PULSE 87; RESP 18; TEMP 36.9; O2SAT 100
--- NOTE | 2022-12-07 09:00 | PC.NURSE ---
PT introductions made and plan of care discussed per post , pain management, breast pumping, bottle feeding, daily care activities and pending discharge to home. PT and spouse both recipients of such instructions and no barriers to learning identified at this time. PT received such instructions this shift via one to one discussion, mom baby care guide and demonstrations. PT verbalized understanding of such care.
[2022-12-07] MEDS: ACETAMINOPHEN 325 MG TABLET 650 MG PO ×2 (09:30→14:18)
[2022-12-07 09:32] VITALS: PULSE 87; RESP 18; O2SAT 100
[2022-12-07] MEDS: IBUPROFEN 600 MG TABLET PO ×2 (09:32→14:19)
[2022-12-07] MEDS: MULTIVIT/MIN/PREN/FOL AC/IRON TABLET 1 TAB PO (09:32)
[2022-12-07] MEDS: POLYSACCHARIDE IRON COMPLEX 150 MG CAPSULE PO (09:32)
[2022-12-07] MEDS: DOCUSATE SODIUM 100 MG CAPSULE PO (09:32)
--- NOTE | 2022-12-07 14:45 | PC.NURSE ---
PT discharged to home ambulatory accompanied by spouse and and walked to waiting car. Follow up appts confirmed
[2022-12-10 15:27] VITALS: BP 141/93; PULSE 105; RESP 18; TEMP 37; O2SAT 100
== END 2022-12-07 14:45 | disposition home or self-care (01) | DRG 807 ==
LOC: ANHLDR 12-05 01:02 → ANHOB2 12-05 04:04
PROVIDERS: Advanced Practice Midwife; Admitting Provider Obstetrics & Gynecology Gynecology; PCP Nurse Practitioner Family; Visit Provider Obstetrics & Gynecology Gynecology
DX: O13.4 Gestational [pregnancy-induced] hypertension without significant proteinuria, complicating childbirth (principal); Z37.0 Single live birth; Z3A.38 38 weeks gestation of pregnancy; O70.1 Second degree perineal laceration during delivery; O24.429 Gestational diabetes mellitus in childbirth, unspecified control; O14.94 Unspecified pre-eclampsia, complicating childbirth
CPT/HCPCS: 36415; 80053; 81050; 82575; 82948; 84156; 84550; 85014; 85018; 85025; 86592; 86850; 86900; 86901; 88307; A9270; J2590; J2795; J7120

== ENCOUNTER 2022-12-10 15:12 | Outpatient (CLI) | payer OTHER, SELFPAY ==
[2022-12-10] MEDS: MEASLES,MUMPS,RUBELLA VACCINE 0.5 ML VIAL SUB-Q (15:41)
== END 2022-12-10 15:13 | disposition home or self-care (01) ==
PROVIDERS: PCP Nurse Practitioner Family; Visit Provider Obstetrics & Gynecology Gynecology
DX: Z34.90 Encounter for supervision of normal pregnancy, unspecified, unspecified trimester (principal); Z3A.00 Weeks of gestation of pregnancy not specified
CPT/HCPCS: 90471; 90710

== ENCOUNTER → 2023-04-25 08:16 | Outpatient (CLI) | payer OTHER, SELFPAY ==
--- NOTE | ~2023-04-25 | US_ITS ---
US breast RT complete DATE: 04/25/2023 08:39 INDICATION: Unspecified right breast lump. The patient was unable to feel the lump reported up to the technologist. Patient is 5 months . TECHNIQUE: Real-time imaging of all 4 quadrants and subareolar area COMPARISON: None FINDINGS: No suspicious mass or shadowing, cyst or other significant sonographic abnormalities detect ed. IMPRESSION: BI-RADS Category 1: Negative Reviewed, dictated and finalized at Location A. Reviewed, dictated and finalized at location A.
== END ==
PROVIDERS: PCP Advanced Practice Midwife; Visit Provider Advanced Practice Midwife
DX: N63.10 Unspecified lump in the right breast, unspecified quadrant (principal)
CPT/HCPCS: 76641

== ENCOUNTER 2024-04-20 15:41 | Outpatient (CLI) | payer OTHER, SELFPAY | END 2024-04-20 15:42 | disposition home or self-care (01) | LOC: CHSLAB 15:45 | PROVIDERS: PCP Advanced Practice Midwife; Visit Provider Obstetrics & Gynecology Gynecology | DX: O26.20 Pregnancy care for patient with recurrent pregnancy loss, unspecified trimester (principal) | CPT/HCPCS: 36415; 84702 ==

== ENCOUNTER 2024-04-22 16:33 | Outpatient (CLI) | payer OTHER, SELFPAY | END 2024-04-22 16:34 | disposition home or self-care (01) | LOC: CHSLAB 16:35 | PROVIDERS: PCP Obstetrics & Gynecology Gynecology; Visit Provider Obstetrics & Gynecology Gynecology | DX: O26.20 Pregnancy care for patient with recurrent pregnancy loss, unspecified trimester (principal) | CPT/HCPCS: 36415; 84702 ==

== ENCOUNTER 2024-04-30 15:15 | Outpatient (CLI) | payer OTHER, SELFPAY ==
--- NOTE | ~2024-04-30 | US_ITS ---
EXAMINATION: US OB transvaginal DATE: 04/30/2024 15:32 INDICATION: Uncertain dates. . History of spontaneous . TECHNIQUE: Real-time transvaginal pelvic ultrasound was performed. COMPARISON: None. FINDINGS: The uterus measures 9.1 x 4.9 x 6.5 cm. There is an intrauterine gestational sac. A yolk sac is ident ified. The crown rump length measures 1.0 cm, which correlates with an estimated gestational a ge of 7 weeks and 1 day(s) (+/-) 5 day(s). heart motion is identified measuring 165 beats per m inute (bpm) by M-mode Doppler. The right ovary measures 5.0 x 3.3 x 3.2 cm. The left ovary is not vis ualized. There is no free fluid in the pelvis. IMPRESSION: 1. Single living intrauterine gestation with estimated date of delivery of 12/16/2024. Reviewed, dictated and finalized at location A. IMPRESSION: 1. Single living intrauterine gestation with estimated date of delivery of 12/16.
== END 2024-04-30 15:16 | disposition home or self-care (01) ==
LOC: MICIMG 15:16
PROVIDERS: PCP Obstetrics & Gynecology Gynecology; Visit Provider Obstetrics & Gynecology Gynecology
DX: Z87.59 Personal history of other complications of pregnancy, childbirth and the puerperium (principal)
CPT/HCPCS: 76817

== ENCOUNTER 2024-06-08 07:41 | Outpatient (CLI) | payer OTHER, SELFPAY ==
[2024-06-08 08:54] LABS: Basophils Absolute Auto 0.03 K/mm3 (0.00-0.10); Basophils Percent Auto 0.3 % (0.0-1.0); Eosinophils Absolute Auto 0.05 K/mm3 (0.02-0.50); Eosinophils Percent Auto 0.5 % (1.0-6.0); Hematocrit 39.7 % (35.0-49.0); Immature Granulocyte Absolute 0.02 K/mm3 (0.00-0.00); Immature Granulocyte Percent A 0.2 % (0.0-0.0); Lymphocytes Absolute Auto 2.18 K/mm3 (1.10-4.50); Mean Corpuscular HGB Conc 35.3 g/dL (32-36); Mean Corpuscular Hemoglobin 27.9 pg (27.0-31.0); Mean Corpuscular Volume 79.1 fL (78.0-102.0); Mean Platelet Volume 9.6 fl (9.2-11.8); Monocytes Absolute Auto 0.52 K/mm3 (0.10-0.90); Monocytes Percent Auto 5.5 % (2.0-11.0); Neutrophils Absolute Auto 6.66 K/mm3 (1.70-7.20); Neutrophils Percent Auto 70.5 % (50.0-70.0); Platelet Count Result 259 K/mm3 (150-420); Red Blood Count 5.02 M/mm3 (4.20-5.40); Red Cell Distribution Width 14.4 % (11.6-14.4); White Blood Count 9.5 K/mm3 (4.8-10.8)
[2024-06-08 09:36] LABS: Hemoglobin A1C 5.3 % (<5.7)
[2024-06-08 09:49] LABS: Glucose 1 Hour 151 mg/dL (<180)
[2024-06-08 09:51] LABS: Glucose Fasting 92 mg/dL (70-99)
[2024-06-08 10:23] LABS: HIV 1 P24 AG Negative (Negative); HIV 1/2 AB Negative (Negative)
[2024-06-08 10:52] LABS: Ferritin 42 ng/mL (8-252); Free T4 Free Thyroxine 0.86 ng/dL (0.76-1.46); Thyroid Stimulating Hormone 1.03 uIU/mL (0.36-3.74)
[2024-06-08 11:08] LABS: Glucose 2 Hour 116 mg/dL (<155)
[2024-06-09 09:38] LABS: Vitamin D 25 Hydroxy 25 ng/mL (30-100)
[2024-06-09 13:53] LABS: RPR Screen NON-REACTIVE (NON-REACTIVE)
[2024-06-09 16:28] LABS: Rubella IgG Antibody 0.98 Index
[2024-06-10 04:44] LABS: Hepatitis B Surface Antigen NON-REACTIVE (NON-REACTIVE); Hepatitis C Virus Antibody NON-REACTIVE (NON-REACTIVE)
== END 2024-06-08 07:42 | disposition home or self-care (01) ==
LOC: CHSLAB 07:43
PROVIDERS: PCP Nurse Practitioner Family; Visit Provider Obstetrics & Gynecology Gynecology
DX: Z34.92 Encounter for supervision of normal pregnancy, unspecified, second trimester (principal)
CPT/HCPCS: 36415; 82306; 82728; 82951; 83036; 84439; 84443; 85025; 86592; 86762; 86803; 86850; 86900; 86901; 87340; 87806

== ENCOUNTER 2024-06-15 11:10 | Outpatient (CLI) | payer OTHER, SELFPAY ==
[2024-06-15 11:32] LABS: Collection Time Urine 24 HOURS
[2024-06-15 11:35] LABS: Total Volume 24 Hour Urine 2000 ml
[2024-06-15 12:53] LABS: Creatinine Urine 58.24 mg/dL (40-278); Patient Weight 225 Lbs
[2024-06-15 13:39] LABS: Estimated Glomerular Filt Rate > 60
[2024-06-15 13:41] LABS: Creatinine Clearance Urine 98.4 ml/min (97-137); Serum Creat 0.71
[2024-06-17 17:38] LABS: Total Protein Urine 24 Hr 154 mg/24hr (0-149); Total Protein Urine Random 7.7 mg/dL (0.0-11.9)
== END 2024-06-15 11:11 | disposition home or self-care (01) ==
LOC: CHSLAB 11:12
PROVIDERS: PCP Nurse Practitioner Family; Visit Provider Obstetrics & Gynecology Gynecology
DX: Z34.92 Encounter for supervision of normal pregnancy, unspecified, second trimester (principal)
CPT/HCPCS: 36415; 81050; 82565; 82575; 84156

== ENCOUNTER 2024-07-27 12:46 | Outpatient (CLI) | payer OTHER, SELFPAY ==
--- NOTE | ~2024-07-27 | US_ITS ---
EXAMINATION: US OB /maternal detail DATE: 07/27/2024 13:29 INDICATION: anatomic survey. TECHNIQUE: Real-time ultrasound of the pelvis was performed. COMPARISON: Ultrasound 04/30/2024 FINDINGS: There is a single living fetus in vertex presentation. The placenta is posterior, 4.2 cm from the ce rvix. heart rate is 150 beats per minute (bpm). The amniotic fluid volume is subjectively lizeth l. The cervical length is 3.3 cm on transabdominal images, which is normal. The following biometric data were obtained: Biparietal diameter (BPD): 5.0 cm; head circumference (HC): 18.3 cm; abdominal circumference (AC): 14 .6 cm; femur length (FL): 3.0 cm. These measurements are concordant. Estimated weight is 308 g +/- 46 g, which correlates with the 45th percentile when 12/16/24 is us ed as estimated date of delivery. As single measurements, these parameters are each equal to the following estimated gestational ages: BPD: 21 weeks 1 days. HC: 20 weeks 5 days. AC: 19 weeks 6 days. FL: 19 weeks 1 days. estimated gestational age based solely on measurements from this exam is 20 weeks 2 days +/- 1 weeks 3 days. The cerebral ventricles, cerebellum, cisterna magna, nuchal fold, lip, and spine are normal. The hear t is normal. The diaphragm, stomach, kidneys, and bladder are normal. There are two umbilical arterie s to yield a 3-vessel cord. The cord insertion is normal. IMPRESSION: 1. Single living fetus in vertex presentation. 2. Estimated weight is 308 g +/- 46 g, which correlates with the 45th percentile when 12/16/24 i s used as estimated date of delivery. 3. Normal anatomic survey. Reviewed, dictated and finalized at location A. RACTS SPECIALIST IMPRESSION: 1. Single living fetus in vertex presentation. 2. Estimated weight is 308 g +/- 46 g, which correlates with the 45th pe rcentile when 12/16/24 is used as estimated date of delivery. 3. Normal anatomic survey.
== END 2024-07-27 12:47 | disposition home or self-care (01) ==
LOC: MICIMG 12:47
PROVIDERS: PCP Obstetrics & Gynecology Gynecology; Visit Provider Obstetrics & Gynecology Gynecology
DX: Z36.9 Encounter for antenatal screening, unspecified (principal)
CPT/HCPCS: 76805

== ENCOUNTER 2024-09-14 13:30 | Outpatient (CLI) | payer OTHER, SELFPAY | END 2024-09-14 13:31 | disposition home or self-care (01) | LOC: MICIMG 13:32 | PROVIDERS: PCP Obstetrics & Gynecology Gynecology; Visit Provider Nurse Practitioner Women's Health | DX: O36.63X0 Maternal care for excessive fetal growth, third trimester, not applicable or unspecified (principal); O40.9XX0 Polyhydramnios, unspecified trimester, not applicable or unspecified; Z3A.00 Weeks of gestation of pregnancy not specified | CPT/HCPCS: 76816 ==

== ENCOUNTER 2024-09-28 07:51 | Outpatient (CLI) | payer OTHER, SELFPAY ==
--- OUTSIDE RECORDS SUMMARY | 2024-09-28 07:59 | XMS_ITS | Clinical Summary ---
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
[2024-09-28 09:12] LABS: Hemoglobin 10.9 g/dL (12.0-15.0)
[2024-09-28 10:18] LABS: Glucose 1 Hour PP 50gm Dose 145 mg/dL (70-130)
[2024-09-28 10:45] LABS: HIV 1 P24 AG Negative (Negative); HIV 1/2 AB Negative (Negative)
[2024-09-30 01:29] LABS: Vitamin D 25 Hydroxy 54 ng/mL (30-100)
== END 2024-09-28 07:52 | disposition home or self-care (01) ==
LOC: CHSLAB 07:54
PROVIDERS: PCP Obstetrics & Gynecology Gynecology; Visit Provider Nurse Practitioner Women's Health
DX: Z36.9 Encounter for antenatal screening, unspecified (principal)
CPT/HCPCS: 36415; 82306; 82947; 85014; 85018; 86592; 87806

== ENCOUNTER 2024-10-05 08:03 | Outpatient (CLI) | payer OTHER, SELFPAY ==
--- OUTSIDE RECORDS SUMMARY | 2024-10-05 08:17 | XMS_ITS | Clinical Summary ---
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
[2024-10-05 08:40] LABS: Glucose Fasting Gestational 86 mg/dL (>/=95)
[2024-10-05 09:50] LABS: Glucose 1 Hour Gest 172 mg/dL (70-130)
[2024-10-05 10:59] LABS: Glucose 2 Hour Gest 133 mg/dL (<155)
[2024-10-05 12:18] LABS: Glucose 3 Hour Gest 56 mg/dL (>/=140)
== END 2024-10-05 08:04 | disposition home or self-care (01) ==
LOC: CHSLAB 08:05
PROVIDERS: Obstetrics & Gynecology Gynecology; PCP Nurse Practitioner Family; Visit Provider Nurse Practitioner Women's Health
DX: O99.810 Abnormal glucose complicating pregnancy (principal)
CPT/HCPCS: 36415; 82951; 82952

== ENCOUNTER 2024-10-12 14:40 | Outpatient (CLI) | payer OTHER, SELFPAY ==
--- NOTE | ~2024-10-12 | US_ITS ---
EXAMINATION: US OB follow up DATE: 10/12/2024 15:04 INDICATION: Polyhydramnios TECHNIQUE: Real-time ultrasound of the pelvis was performed. The interpreting radiologist was not pre sent for the study. COMPARISON: None. FINDINGS: There is a single living fetus in vertex presentation. The placenta is posterior and not low-lying. heart rate is 149 beats per minute (bpm). The amniotic fluid index is 21.6 cm, which is normal (5th%-95%: 9.0-23.4 cm at 30 weeks estimated gestational age). The following biometric data were obtained: BPD: 8.3 cm -> 33 weeks 4 days Head circumference: 31.2 cm -> 34 weeks 6 days Abdominal circumference: 29.1 cm -> 33 weeks 0 days Femur length: 6.1 cm -> 31 weeks 4 days These measurements are concordant. Head circumference to abdominal circumference ratio: 1.07 (normal range 0.96-1.11). Estimated weight: 2059 g (+/-) 309 g or 4 lbs. 9 oz. (+/-) 11 oz. IMPRESSION: 1. Single living fetus in vertex presentation with heart rate of 149 bpm. 2. Normal amniotic fluid index of 21.6 cm. 3. Estimated weight is 96th percentile by Hadlock criteria when 11/28/2024 is used as the estima sylvia date of delivery (GABI). Please correlate with clinical information or earlier ultrasounds for mos t accurate GABI. Reviewed, dictated and finalized at location B. IMPRESSION: 1. Single living fetus in vertex presentation with heart rate of 149 bpm. 2. Normal amniotic fluid index of 21.6 cm. 3. Estimated weight is 96th percentile by Hadlock criteria when 11/28/2024 is used as the estimated date of delivery (GABI). Please correlate with clinica l information or earlier ultrasounds for most accurate GABI.
== END 2024-10-12 14:41 | disposition home or self-care (01) ==
LOC: GOSHIMG 14:41
PROVIDERS: PCP Obstetrics & Gynecology Gynecology; Visit Provider Obstetrics & Gynecology Gynecology
DX: O40.3XX0 Polyhydramnios, third trimester, not applicable or unspecified (principal); Z3A.00 Weeks of gestation of pregnancy not specified
CPT/HCPCS: 76816

== ENCOUNTER 2024-11-16 13:13 | Outpatient (CLI) | payer OTHER, SELFPAY ==
--- NOTE | ~2024-11-16 | US_ITS ---
EXAMINATION: US OB follow up DATE: 11/16/2024 13:45 INDICATION: Estimated size greater than expected for estimated gestational age during third [facility] TECHNIQUE: Real-time ultrasound of the pelvis was performed. The interpreting radiologist was not pre sent for the study. COMPARISON: None. FINDINGS: There is a single living fetus in vertex presentation. The placenta is posterior and not low-lying. heart rate is 165 beats per minute (bpm). The amniotic fluid index is 18.0 cm, which is normal (5th%-95%: 7.9-24.9 cm at 35 weeks estimated gestational age). The following biometric data were obtained: BPD: 9.6 cm -> 39 weeks 1 days Head circumference: 33.8 cm -> 38 weeks 5 days Abdominal circumference: 33.9 cm -> 37 weeks 6 days Femur length: 7.0 cm -> 35 weeks 5 days These measurements are concordant. Head circumference to abdominal circumference ratio: 1.00 (normal range 0.90-1.05). Estimated weight: 3254 g (+/-) 488 g or 7 lbs. 3 oz. (+/-) 1 lb. 1 oz. IMPRESSION: 1. Single living fetus in vertex presentation with heart rate of 165 bpm. 2. Normal amniotic fluid index of 18.0 cm. 3. Estimated weight is 93rd percentile by Hadlock criteria when 12/16/2024 is used as the estimat ed date of delivery (GABI). Please correlate with clinical information or earlier ultrasounds for most accurate GABI. Reviewed, dictated and finalized at location A. IMPRESSION: 1. Single living fetus in vertex presentation with heart rate of 165 bpm. 2. Normal amniotic fluid index of 18.0 cm. 3. Estimated weight is 93rd percentile by Hadlock criteria when 12/16/2024 is used as the estimated date of delivery (GABI). Please correlate with clinical information or earlier ultrasounds for most accurate GABI.
== END 2024-11-16 13:14 | disposition home or self-care (01) ==
PROVIDERS: PCP Obstetrics & Gynecology Gynecology; Visit Provider Obstetrics & Gynecology Gynecology
DX: O36.63X0 Maternal care for excessive fetal growth, third trimester, not applicable or unspecified (principal); Z3A.00 Weeks of gestation of pregnancy not specified
CPT/HCPCS: 76816

== ENCOUNTER 2024-12-11 03:36 | Observation (INO) | payer OTHER, SELFPAY ==
--- NOTE | 2024-12-11 04:49 | PC.NURSE ---
RN called MD and notified him of pts arrival to unit with complaints of contractions, RN notified MD of reactive tracing and uterine irritability as well as unchanged SVE. Orders received for discharge.
--- OUTSIDE RECORDS SUMMARY | 2024-12-11 04:59 | XMS_ITS | Clinical Summary ---
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
--- NOTE | 2024-12-11 05:16 | PC.NURSE ---
[phone] Moderate variability with 15X15 accelerations. No decelerations noted. Uterine irritability noted. Contractions noted 30 seconds to 6 min apart lasting 30 to 60 seconds. Contractions mild to palpation.
--- NOTE | 2024-12-14 08:54 | PM.OBTRLD ---
OB - Triage/Final Diagnosis Visit Information Comments/Additional reasons for admission: I have assessed the risk for this patient, Jeni Mariia Parry, and determined that she would benefit from observation care. Final Diagnosis (1) False labor: Code(s): O47.9 - False labor, unspecified Status: Acute
== END 2024-12-11 05:10 | disposition home or self-care (01) ==
PROVIDERS: Admitting Provider Obstetrics & Gynecology; Visit Provider Obstetrics & Gynecology
DX: O47.03 False labor before 37 completed weeks of gestation, third trimester (principal); Z3A.36 36 weeks gestation of pregnancy
CPT/HCPCS: G0378; G0379

== ENCOUNTER 2024-12-17 03:53 | Inpatient (IN) | payer OTHER, SELFPAY ==
[2024-12-17] VITALS (190 sets, daily range): BP systolic 68–193; BP diastolic 20–121; PULSE 41–150; RESP 16–18; TEMP 36.1–37.1; O2SAT 76–100; BMI 44.5
--- OUTSIDE RECORDS SUMMARY | 2024-12-17 03:58 | XMS_ITS | Clinical Summary ---
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
[2024-12-17] MEDS: LACTATED RINGERS 1,000 ML 125 ML IV CONT ×3 (04:21→12:44)
[2024-12-17 04:36] LABS: Basophils Percent Auto 0.3 % (0.2-1.2); Eosinophils Percent Auto 0.4 % (0-4.4); Hematocrit 36.9 % (37.0-47.0); Hemoglobin 11.5 g/dL (12.0-15.0); Immature Granulocyte Absolute 0.06 K/mm3 (0.00-0.031); Immature Granulocyte Percent A 0.6 % (0-0.5); Lymphocytes Absolute Auto 2.15 K/mm3 (0.9-3.2); Lymphocytes Percent Auto 21.8 % (18.3-44.2); Mean Corpuscular HGB Conc 31.2 g/dl (32-36); Mean Corpuscular Hemoglobin 23.9 pg (26-34); Mean Corpuscular Volume 76.6 fl (80-100); Mean Platelet Volume 10.6 fl (7.4-10.4); Monocytes Absolute Auto 0.6 K/mm3 (0.1-0.6); Monocytes Percent Auto 6.5 % (2.6-8.5); Neutrophils Absolute Auto 6.9 K/mm3 (1.3-6.7); Neutrophils Percent Auto 70.4 % (45.5-73.1); Platelet Count Result 182 k/mm3 (150-375); Red Blood Count 4.82 M/mm3 (4.2-5.4); Red Cell Distribution Width 17.2 % (11.5-14.5); White Blood Count 9.8 K/mm3 (4.5-10.0)
--- NOTE | 2024-12-17 04:37 | WPDANESEPP ---
Anes - Eval Pre Procedure Procedure: Labor Epidural Date/Time: 12/17/24 04:37 Surgeon: Glenn Preop Diagnosis: Labor Pain Pre Op Diagnosis: IOL Patient Data Age: 24 Gender: F Height: Weight: Last Vital Signs Pulse 96 12/17/24 04:31 BP 143/121 H 12/17/24 04:31 Pulse Ox 98 12/17/24 04:34 Allergies Allergy/AdvReac Type Severity Reaction Status Date / Time No Known Allergies Allergy Verified 11/16/24 14:26 Home Medications ?Medication ?Instructions ?Recorded ?Confirmed ?Type docosahexaenoic acid 200 mg 200 mg PO DAILY 12/06/21 11/16/24 History capsule ( DHA) aspirin 81 mg capsule 162 mg PO DAILY 11/16/24 11/16/24 History sertraline 25 mg tablet 50 mg PO DAILY 11/16/24 11/16/24 History Laboratory Tests 12/17/24 04:29 WBC Pending RBC Pending Hgb Pending Hct Pending MCV Pending MCH Pending MCHC Pending RDW Pending Plt Count Pending MPV Pending Immature Gran % (Auto) Pending Neut % (Auto) Pending Lymph % (Auto) Pending [place] % (Auto) Pending Eos % (Auto) Pending Baso % (Auto) Pending Lymph # (Auto) Pending [place] # (Auto) Pending Eos # (Auto) Pending Baso # (Auto) Pending Abs Immat Gran (auto) Pending Absolute Neuts (auto) Pending Absolute Nucleated RBC Pending Nucleated RBC % Pending HIV 1&2 Ab/P24 Ag 4thGn Pending : gestational age Patient hx anesthesia problems: none Family hx anesthesia problems: none Results Review: All pre-operative results and documents have been reviewed as part of the pre-operative evaluation. [facility] Past Medical History Medical History Morbid obesity History of anxiety Family History Family History Father Anxiety Social History Social History Smoking status: Never smoker Alcohol intake: never Substance use: never Do You Feel Safe in your Home?: No Lack of Transportation: No Lack of Food: Never True Current Housing: I Have Housing Concerned About Future Housing: No Difficulty Paying Gas/Electric Bills: No Difficulty Paying for Meds: No Currently Unemployed: No Education: Bachelor's Degree Difficulty w/ Childcare or Family Care: No Spiritual care concerns: No Exam Day of Procedure 12/17/24 04:37 Patient weight: morbidly obese Heart: regular rate and rhythm Lungs: normal air movement Airway: Mallampati scale class II Neurological: alert and oriented
--- NOTE | 2024-12-17 04:38 | LDADM ---
This patient, Jeni Parry, was admitted to Labor/Delivery/Recovery 104 on 12/17/24 at 03:53. Plans for labor, pain management and were discussed with patient. Patient/family oriented to hospital policies and general routines including ID bracelet, bed and alarms, visiting hours, pain management, procedures, bathroom and other care routines, personal items, smoking policy, room service/diet and guest tray routines, security routines, and visiting hours. Patient/Family are encouraged to report perceived risks to care and to ask questions if they do not understand what they are told or what they should do. See OBIX for further documentation.
[2024-12-17 05:30] LABS: HIV 1/2 Ab P24 Ag Result Negative (Negative)
[2024-12-17 05:35] LABS: Syphilis IgG/IgM Antibody Negative (Negative)
--- NOTE | 2024-12-17 07:25 | WPDOBADMIT ---
Obstetrics - Admit Note Admission Note: record reviewed. No pertinent additions to the history and/or any subsequent changes in the physical findings that are not consistent with the expected course of the were found. Additions to the history and/or subsequent changes in the physical findings follow. Was set for MIL 2 days ago but cancelled due to staffing. Arrived this am 30 min before set MIL time in labor. Now 6/70/-2 AROM with clear fluid. Vtx by exam and u/s. FHTs reactive.
[2024-12-17] MEDS: OXYTOCIN 30 UNITS/NS 500 ML 30 UNITS/500 ML BAG IV CONT (08:50)
[2024-12-17] MEDS: LIDOCAINE 1% LOCAL INJ 20 ML VIAL (14:28)
--- NOTE | 2024-12-17 14:32 | P.PCNOB_ITS ---
OB - Vaginal Delivery Note Procedure Delivery date: 12/17/24 Induction method: None Delivery augmentation: Rupture of Membranes Delivery monitor: Internal FHT and Internal Uterine Route of delivery: Episiotomy description: None Laceration Description: Perineal - 2nd Degree Delivery repair: vicryl (3-0) Specimen: No Quantitative Blood Loss (ml): 150 Anesthesia type: Local Disposition: Floor Complications: No immediate complications Narrative: Late internal rotation from ROP to VY just before delivery [place] Baby Date of : 12/17/24 Gestational Age by Date: 39 Infant gender: Female Weight (pounds): 8 Weight (ounces): 7 presentation: vertex position: Right Occiput Anterior Placenta delivery description: Spontaneous and Normal Configuration Cord Vessel Description: 3 Vessels, Nuchal Cord and Delayed Cord Clamping score one minute: 7 score five minutes: 9
--- NOTE | 2024-12-17 14:34 | PM.OBDSVD ---
DS: Admitting Diagnosis Discharge Date 12/18/24 Admitting Diagnosis IUP 39 wks labor DS: Discharge Diagnosis Discharge Diagnosis (1) (normal spontaneous vaginal delivery): Code(s): O80 - Encounter for full-term uncomplicated delivery Status: Acute OB - DS: Summary OB Procedures : Ultrasound OB Procedures Intrapartum: Spontaneous Vag Delivery OB Procedures: : None Peripartum Data Delivery Method: Natural Vaginal Laceration Description: Perineal - 2nd Degree Episiotomy description: None complications: none Status at Discharge Functional status at discharge: independent ambulation Overall status at discharge: patient is progressing back to baseline Time Spent with Patient Time attestation: Total time spent providing and/or coordinating discharge services: DS: Data Data Completed and Pending Labs on day of discharge: Labs from last 24 hours 12/17/24 04:29 WBC 9.8 RBC 4.82 Hgb 11.5 L Hct 36.9 L MCV 76.6 L MCH 23.9 L MCHC 31.2 L RDW 17.2 H Plt Count 182 MPV 10.6 H Immature Gran % (Auto) 0.6 H Neut % (Auto) 70.4 Lymph % (Auto) 21.8 [place] % (Auto) 6.5 Eos % (Auto) 0.4 Baso % (Auto) 0.3 Lymph # (Auto) 2.15 [place] # (Auto) 0.6 Eos # (Auto) 0.0 Baso # (Auto) 0.0 Abs Immat Gran (auto) 0.06 H Absolute Neuts (auto) 6.9 H Absolute Nucleated RBC 0.000 Nucleated RBC % 0.0 Syphilis IgG/IgM Ab Negative HIV 1&2 Ab/P24 Ag 4thGn Negative Blood Type A Positive Antibody Screen Negative Discharge Plan Discharge Attending physician on discharge: Rosanna Elizabeth Discharging Clinician: Rosanna Elizabeth Anticipated Discharge Date/Time: 12/19/24 14:34 Patient Disposition: Home Activity: may shower and pelvic rest Diet: regular Patient Instructions: Antibiotic Form Patient Language: Bengali Stand Alone Forms: General Discharge Information Follow-up/Referrals: Rosanna Elizabeth MD [Physician] - 6 Weeks Discharge Medications: Continued DHA 200 mg capsule 200 mg PO DAILY sertraline 25 mg tablet 50 mg PO DAILY Discontinued aspirin 81 mg capsule 162 mg PO DAILY Date of admission: 12/17/24 03:53 Primary Care Provider: PHYSICIAN,TANNER ROTARY DRUM CONTINUOUS PROCESS Admitting Provider: Rosanna Elizabeth Attending physician on admission: Rosanna Elizabeth Condition: Stable
[2024-12-17] MEDS: OXYTOCIN 30 UNITS/NS 500 ML 30 UNITS/500 ML BAG 125 UNITS IV CONT (15:10)
--- NOTE | 2024-12-17 16:55 | OBPPTRN ---
Patient transferred to post room #281 via wheelchair. Support person present. Oriented to unit, room, information board, rooming in, admission packet and security measures. Patient verbalizes understanding.
[2024-12-17] MEDS: DOCUSATE SODIUM 100 MG CAPSULE PO (17:26)
[2024-12-17] MEDS: IBUPROFEN 600 MG TABLET PO (17:26)
[2024-12-17] MEDS: SERTRALINE HCL 50 MG TABLET PO (21:18)
[2024-12-18 00:13] VITALS: BP 119/62; PULSE 90; RESP 16; TEMP 36.7; O2SAT 98
[2024-12-18] MEDS: IBUPROFEN 600 MG TABLET PO (03:00)
[2024-12-18 04:36] VITALS: BP 131/74; PULSE 82; RESP 18; TEMP 36.5; O2SAT 100
[2024-12-18 04:55] LABS: Hematocrit 33.5 % (37.0-47.0); Hemoglobin 10.4 g/dL (12.0-15.0)
[2024-12-18 07:20] VITALS: BP 100/52; PULSE 77; RESP 18; TEMP 36.7; O2SAT 99
--- NOTE | 2024-12-18 07:39 | P.PNOB_ITS ---
OB - PN: Subj Subjective Date/time seen: 12/18/24 07:39 Patient comments: no complaints and pain well controlled baby status: doing well OB - PN: Obj Data Labs 12/18/24 04:06 Labs: Laboratory Results - last 24 hr 12/18/24 04:06 Hgb 10.4 L Hct 33.5 L OB - PN A/P Plan day: 1 Plan: routine care, discharge home, follow up 6 weeks and other (plans POP) Time Spent With Patient Time: Total time spent is greater than 50% in coordination of care (as documented) at patient's floor/unit and/or counseling patient: Exam 2 : Bimanual exam- vagina & uterus: other (Uterus firm, nt @U)
[2024-12-18] MEDS: ACETAMINOPHEN 325 MG TABLET 650 MG PO (08:14)
[2024-12-18 12:11] VITALS: BP 117/85; PULSE 82; RESP 16; TEMP 36.9; O2SAT 100
--- NOTE | 2024-12-18 14:42 | WPDANLDPN2 ---
Anes-Prog Note L&D Date/Time: 12/18/24 14:42 Comfortable throughout: labor and delivery Neuraxial method: epidural Epidural/Spinal procedure site: clean & non-tender Neuro status: Neuro function grossly intact. Cardiovascular status: normal Respiratory status: normal Airway patency: baseline Mental status: baseline Vital Signs: Last Vital Signs Temp 36.9 C 12/18/24 12:11 Pulse 82 12/18/24 12:11 Resp 16 12/18/24 12:11 BP 117/85 12/18/24 12:11 Pulse Ox 100 12/18/24 12:11 O2 Del Method Room Air 12/18/24 08:15 Pain score (VAS): 1 Patient feedback: Patient satisfied with anesthetic care.
[2024-12-21 09:01] VITALS: BP 129/80; PULSE 74; RESP 18; TEMP 36.8; O2SAT 100
== END 2024-12-18 16:08 | disposition home or self-care (01) | DRG 807 ==
LOC: ANHLDR 14:35 → ANHOB2 17:02
PROVIDERS: Admitting Provider Obstetrics & Gynecology Gynecology; Visit Provider Obstetrics & Gynecology Gynecology
DX: O36.63X0 Maternal care for excessive fetal growth, third trimester, not applicable or unspecified (principal); Z37.0 Single live birth; Z3A.40 40 weeks gestation of pregnancy; O70.1 Second degree perineal laceration during delivery; O69.81X0 Labor and delivery complicated by cord around neck, without compression, not applicable or unspecified
CPT/HCPCS: 36415; 85014; 85018; 85025; 86593; 86703; 86850; 86900; 86901; A9270; G0432; J2003; J2590; J2795; J7120

== ENCOUNTER 2025-05-20 08:19 | Emergency (ER) | payer OTHER, SELFPAY ==
--- NOTE | 2025-05-20 08:28 | ED_ITS ---
HPI - URI/Sore Throat General Chief Complaint: Upper Respiratory Infection Stated Complaint: SORE THROAT Time Seen by Provider: 05/20/25 08:22 Source: patient Mode of arrival: ambulatory Limitations: no limitations History of Present Illness HPI Narrative: Jeni is a 25-year-old female patient presenting to the clinic today with complaints of a sore throat that just started this morning. Reports she has had nasal congestion and cough for about 1 week. She had her son in the clinic yesterday and he tested positive for strep. She denies any fevers, chills, body aches. Has not taken any medications for her symptoms. Rates her pain 4/10 currently. Related Data Home Medications ?Medication ?Instructions ?Recorded ?Confirmed ?Last Taken ?Type docosahexaenoic acid 200 mg 200 mg PO DAILY 12/06/21 1 07/20/24 11/16/24 History capsule ( DHA) sertraline 25 mg tablet 50 mg PO DAILY 11/16/2401/0611/16/24 History Allergies Allergy/AdvReac Type Severity Reaction Status Date / Time No Known Allergies Allergy Verified 05/20/25 08:33 Review of Systems Review of Systems: Pertinent positives per HPI. Patient denies any fever, chills, rash, headache, visual changes, dizziness, cough, shortness of breath, chest pain, palpitations, nausea, vomiting, diarrhea, constipation, abdominal pain, or any urinary issues. [facility] Past Medical History Medical History Morbid obesity History of anxiety Family History Family History Father Anxiety Social History Social History Alcohol intake: never Substance use: never Do You Feel Safe in your Home?: No Lack of Transportation: No Lack of Food: Never True Current Housing: I Have Housing Concerned About Future Housing: No Difficulty Paying Gas/Electric Bills: No Difficulty Paying for Meds: No Currently Unemployed: No Education: Trade/Vocational Certificate Difficulty w/ Childcare or Family Care: No Spiritual care concerns: No Comments At the time of my signature, I reviewed and agree with the nursing past medical, surgical, social, and family history. There is no relevant family history pertinent to the patient complaint. Exam Narrative: General: Well-developed, well nourished, in no apparent distress Head: Normocephalic, atraumatic Eyes: Pupils equally round and reactive to light bilaterally, EOM intact, sclera and conjunctive clear, no discharge, lids normal Ears: TMs intact and clear, ear canals clear, no drainage, grossly hearing normal. Nose: Nares patent, clear nasal discharge, no inflammation, no sinus tenderness. Mouth: Oral pharynx red without lesions or masses, good dentition, MMM. PND Neck: Supple, trachea midline, no enlargement of anterior or posterior cervical nodes, no thyroid masses or goiter palpable. Cardio: Regular rate and rhythm, s1 and s2 normal, no murmur appreciated. Resp: Clear to auscultation bilaterally, no rhonchi, rales, wheezing or rubs Course Course Emergency Course: Portions of this record may have been created with voice recognition software. Level of Care: Express Care Visit Vital Signs Vital signs: Vital Signs Temperature 36.2 C L 05/20/25 08:35 Pulse Rate 95 05/20/25 08:35 Respiratory Rate 16 05/20/25 08:35 Blood Pressure 135/76 05/20/25 08:35 Pulse Oximetry 99 05/20/25 08:35 Temperature 36.2 C L 05/20/25 08:35 Pulse Rate 95 05/20/25 08:35 Respiratory Rate 16 05/20/25 08:35 Blood Pressure 135/76 05/20/25 08:35 Pulse Oximetry 99 05/20/25 08:35 Vital signs reviewed MDM - URI/Sore Throat MDM Narrative Medical decision making narrative: At the time of visit patient is resting comfortably on the exam table. Patient appears to be nontoxic. Complaints of a sore throat that just started this morning. Reports she has had nasal congestion and cough for about 1 week. She had her son in the clinic yesterday and he tested positive for strep. She denies any fevers, chills, body aches. Has not taken any medications for her symptoms. Rates her pain 4/10 currently. On exam patient has TMs intact and clear, no nasal drainage, oral pharynx mildly red with postnasal drip, no cervical lymphadenopathy, lung sounds are clear, heart rates regular rate rhythm. Labs: Strep test was performed and negative in the clinic today. We will send strep for culture. Plan: I suspect patient has acute pharyngitis. She has had strep exposure. We will send strep for culture. Supportive measures were discussed with the patient and they voiced understanding discharge instructions and agrees to treatment plan. Return precautions reviewed. Differential Diagnosis Differential diagnosis: Likely upper respiratory infection, otitis media, sinusitis, viral infection, bronchitis, influenza, pharyngitis and other ( COVID) Lab Data Labs: Lab Results 05/20/25 Range/Units 08:41 POC Grp A Strep Screen Negative (Negative) Discharge Plan Discharge Clinical Impression: Pharyngitis Qualifiers: Pharyngitis/tonsillitis etiology: unspecified etiology Qualified Code(s): J02.9 - Acute pharyngitis, unspecified Patient Disposition: Home Condition: Stable Instructions: Antibiotic Form, Pharyngitis (ED) Additional Instructions: Strep test was negative in the clinic today. We will send strep for culture if this comes back positive we will contact you place you on antibiotics at that time. Increase fluids and stay well hydrated May take Tylenol or motrin as directed on bottle for pain/fever May use Flonase 1 spray in each nare daily May take OTC antihistamines such as Zyrtec or Claritin daily as directed on bottle May apply Vicks vapor rub to chest to open sinuses Sinus rinses for congestion Cepacol spray, cough drops, throat lozenges, warm tea with honey/lemon, gargle salt water to soothe throat BRAT diet for diarrhea Clear liquids x 24 hours then advance as tolerated for nausea/vomiting Go to the ED if you develop a worsening in your condition- high fever not controlled by Tylenol or Motrin, dehydration, weakness, lethargy, shortness of breath, or chest pain. Follow up with your PCP in 3-5 days if symptoms persist. Patient Language: Turkmen Prescriptions: No Action DHA 200 mg capsule 200 mg PO DAILY sertraline 25 mg tablet 50 mg PO DAILY norethindrone (contraceptive) 0.35 mg tablet 0.35 mg PO DAILY Qty: 84 3RF Follow-up/Referrals: PHYSICIAN,[employer] [Primary Care Provider, Internal Medicine] Stand Alone Forms: Work/School Release IP Time of Disposition: 08:41 Quality NIHSS Nursing Documentation ED NIHSS nursing documentation: reviewed/agree
[2025-05-20 08:35] VITALS: BP 135/76; PULSE 95; RESP 16; TEMP 36.2; O2SAT 99
[2025-05-20 08:43] LABS: EDSTREPNEGPOS1 Negative (Negative)
== END 2025-05-20 08:47 | disposition home or self-care (01) ==
PROVIDERS: Emergency Provider Nurse Practitioner Family
DX: J02.9 Acute pharyngitis, unspecified (principal); Z79.899 Other long term (current) drug therapy
CPT/HCPCS: 87081; 87880; 99213; G0463